=== PATIENT | female | born 1995 | race Caucasian/White ===

== ENCOUNTER 2017-12-14 21:08 | Emergency (ER) | payer OTHER ==
[~2017-12-14] VITALS: Ht 157.5 cm; Wt 71.7 kg
[2017-12-14 21:15] VITALS: Ht 157.5 cm; Wt 71.7 kg
[2017-12-14 23:33] VITALS: BP 117/53
== END 2017-12-14 23:33 | disposition home or self-care (01) ==
LOC: ED 21:08
DX: S86.911A Strain of unspecified muscle(s) and tendon(s) at lower leg level, right leg, initial encounter (principal); X50.1XXA Overexertion from prolonged static or awkward postures, initial encounter; Y93.51 Activity, roller skating (inline) and skateboarding; Y92.89 Other specified places as the place of occurrence of the external cause; Y99.8 Other external cause status